=== PATIENT | female | born 1995 | race African-American/Black ===

== ENCOUNTER 2023-03-31 01:50 | Emergency (ER) | payer MEDICAID ==
[~2023-03-31] VITALS: Ht 182.9 cm; Wt 77.0 kg
[2023-03-31 01:51] VITALS: BP 138/92; PULSE 93; RESP 18; O2SAT 99
[2023-03-31] MEDS ORDERED: ACETAMINOPHEN 325MG TABLET PO ONE (02:00)
[2023-03-31 02:25] VITALS: TEMP 99.9
[2023-03-31] MEDS ORDERED: ALBU6.7H15 INH (03:34)
[2023-03-31] MEDS ORDERED: GUAI600T26 MT (03:34)
[2023-03-31] MEDS ORDERED: ACET-2708 MT (03:34)
[2023-03-31] MEDS ORDERED: GUAIFENESIN 600MG ER TABLET PO ONE (03:45)
== END 2023-03-31 03:55 | disposition home or self-care (01) ==
LOC: ER 01:50
DX: B34.9 Viral infection, unspecified (principal); Z00.00 Encounter for general adult medical examination without abnormal findings; Z20.822 Contact with and (suspected) exposure to COVID-19
CPT/HCPCS: 99283; 87426; 81025; 87804 ×2; C9803